=== PATIENT | male | born 1990 | race Caucasian/White ===

== ENCOUNTER 2017-10-21 20:33 | Emergency (ER) | payer SELFPAY ==
[~2017-10-21] VITALS: Ht 190.5 cm; Wt 118.2 kg
[2017-10-21 21:10] LABS: HEMATOCRIT 49.6 % (39.0-50.0); HEMOGLOBIN 17.6 g/dl (14.0-18.0); IMMATURE GRANULOCYTES 0.5 % (0.0-5.0); MEAN CELL VOLUME 87.3 fL CALC (80.0-100.0); MEAN CORPUSCULAR HGB CONC 35.5 g/L CALC (32.0-36.0); NEUT# 11.06 thou/uL (1.82-7.42); RED BLOOD COUNT 5.68 mill/uL (4.70-6.10); RED CELL DISTRI WIDTH 12.7 % (11.5-15.5)
[2017-10-21 21:24] LABS: ALBUMIN 5.1 g/dL (3.2-5.0); ALKALINE PHOSPHATASE 132 u/l (38-126); AMYLASE 82 u/l (30-110); ANION GAP 19 (6-22 (CALC)); BILIRUBIN, TOTAL 0.8 mg/dL (0.0-1.4); BUN 14 mg/dL (9-20); BUN/CREATININE RATIO 15 (12-20 (CALC)); CARBON DIOXIDE 24 mmol/l (22-30); CHLORIDE 105 mmol/l (95-108); GFR > 60 ML/MIN (>=60 (CALC)); GFR FOR AFR.AMER. > 60 ML/MIN (>=60 (CALC)); LIPASE 109 u/l (23-300); POTASSIUM 4.3 mmol/l (3.5-5.1); SGOT/AST 31 u/l (17-59); SGPT/ALT 55 u/l (21-72); SODIUM 144 mmol/l (137-146); TOTAL PROTEIN 8.6 g/dL (6.3-8.2)
[2017-10-21 23:01] LABS: URINE BILIRUBIN - DIPSTICK NEGATIVE (NEGATIVE); URINE BLOOD DIPSTICK NEGATIVE (NEGATIVE); URINE COLOR YELLOW; URINE GLUCOSE - DIPSTICK NEGATIVE (NEGATIVE); URINE KETONE TRACE mg/dL (NEGATIVE); URINE LEUK ESTERASE NEGATIVE (NEGATIVE); URINE NITRITE - DIPSTICK NEGATIVE (Negative); URINE PROTEIN - DIPSTICK NEGATIVE (NEG-TRACE); URINE SPECIFIC GRAVITY 1.025; URINE UROBILINOGEN - DIPSTICK 0.2 E.U./dL (0.2)
[2017-10-21 23:04] LABS: URINE CLARITY CLEAR
[2017-10-22] MEDS ORDERED: PROTONIX40 MG PO (02:33)
[2017-10-22 02:57] VITALS: BP 121/65
== END 2017-10-22 02:57 | disposition home or self-care (01) | DRG 392 ==
LOC: ED 20:33
PROVIDERS: Emergency Medicine
DX: R10.13 Epigastric pain (principal); R16.1 Splenomegaly, not elsewhere classified
CPT/HCPCS: S0164

== ENCOUNTER 2019-05-02 | Emergency (ER) | payer SELFPAY ==
[~2019-05-02] MED LIST: PROTONIX40 MG PO
[2019-05-02] MEDS ORDERED: ULTRAM50 M1 PO (18:48)
[2019-05-02] MEDS ORDERED: CLEOCIN300 MG PO (18:48)
== END 2019-05-02 18:54 | disposition home or self-care (01) | DRG 159 ==
DX: K03.81 Cracked tooth (principal); F17.200 Nicotine dependence, unspecified, uncomplicated

== ENCOUNTER 2019-09-12 10:19 | Emergency (ER) | payer SELFPAY ==
[~2019-09-12] VITALS: Ht 190.5 cm; Wt 100.0 kg
[~2019-09-12 10:19] MED LIST changes: +CLEOCIN300 MG PO; +ULTRAM50 M1 PO
[2019-09-12 12:32] VITALS: BP 109/69
== END 2019-09-12 12:30 | disposition home or self-care (01) | DRG 605 ==
LOC: ED 10:19
PROC: 0HQGXZZ Repair Left Hand Skin, External Approach (ICD-10-PCS; principal; 2019-09-12)
DX: S61.211A Laceration without foreign body of left index finger without damage to nail, initial encounter (principal); F17.200 Nicotine dependence, unspecified, uncomplicated; W26.8XXA Contact with other sharp object(s), not elsewhere classified, initial encounter; Y92.009 Unspecified place in unspecified non-institutional (private) residence as the place of occurrence of the external cause